=== PATIENT | female | born 2000 ===

== ENCOUNTER → 2022-03-24 11:15 | Outpatient (CLI) | payer OTHER, SELFPAY ==
--- NOTE | 2022-03-24 11:16 | DI.US.S_ITS ---
PROCEDURE: US OB <= 14 WEEKS FETUS INDICATIONS: DATING TECHNIQUE: Real-time scanning was performed of the fetus and maternal pelvic organs, with image documentation. Endovaginal scanning was also performed to better visualize the fetus and maternal ovaries. COMPARISON: None. Findings: Gestational sac at the uterine fundus containing a fetus with a crown-rump length of 2.1 cm, corresponding to gestational age of 8 weeks 5 days. Yolk sac noted. heart rate 169 beats per minute. Size is consistent with dates. IMPRESSION: Single living intrauterine gestation with estimated gestational age 8 weeks 5 days based on ultrasound parameters. We strive to produce accurate, complete, and clear reports of imaging services. To assist us in improving patient care, this report was composed using standard report templates and voice recognition software. Therefore, it may contain abnormal punctuation, insertions and/or omissions. Occasional wrong-word or sound-alike substitutions may occur. Though we review the report and make efforts to correct it, we do recommend that the report be read carefully in proper context to recognize any text inaccuracies. Dictated by: Vinay Jasso M.D. on 03/24/2022 at 18:42 Approved by: Vinay Jasso M.D. on 03/24/2022 at 18:43
== END ==
PROVIDERS: Referring Provider Obstetrics & Gynecology; Visit Provider Obstetrics & Gynecology
DX: Z36.87 Encounter for antenatal screening for uncertain dates (principal); Z3A.08 8 weeks gestation of pregnancy
CPT/HCPCS: 76801; 76817

== ENCOUNTER → 2022-04-20 15:56 | Outpatient (CLI) | payer OTHER, SELFPAY ==
[2022-04-20 17:10] LABS: Add Manual Diff / Slide Review NO; Basophils Absolute Auto 0 /uL (0-100); Basophils Percent Auto 0.2 % (0-2); Eosinophils Absolute Auto 200 /uL (0-450); Eosinophils Percent Auto 2.4 % (2-4); Hematocrit 38.8 % (36-46); Hemoglobin 13.3 g/dL (12.0-16.0); Lymphocytes Absolute Auto 2200 /uL (1100-4500); Lymphocytes Percent Auto 21.2 % (25-40); Mean Corpuscular HGB Conc 34.2 % (30-36); Mean Corpuscular Hemoglobin 31.4 PG (26-34); Mean Corpuscular Volume 91.9 fL (80-100); Monocytes Absolute Auto 600 /uL (0-900); Monocytes Percent Auto 6.1 % (3-14); Neutrophils Absolute Auto 7200 /uL (1500-7000); Neutrophils Percent Auto 70.1 % (50-75); Platelet Count 230 X10^3/uL (150-400); Red Blood Cell Count 4.22 X10^6/uL (4.0-5.2); Red Cell Distribution Width 12.6 % (11.6-14.8); White Blood Cell Count 10.2 X10^3/uL (4.5-11.0)
[2022-04-21 16:17] LABS: Hepatitis B Surface Antigen NEGATIVE s/c (NEGATIVE); Rubella Antibody IgG 10.6 IU/mL (>15)
[2022-04-21 16:34] LABS: HIV 1 & 2 Ab/Ag 4th Gen Combo NEGATIVE (NEGATIVE); Hep C Virus Ab w/Reflex Quant NEGATIVE s/c (NEGATIVE)
[2022-04-22 02:58] LABS: RPR Screen Non Reactive (Non Reactive)
[2022-04-22 08:10] LABS: Varicella IgG Antibody 441 index (Immune >165)
== END ==
PROVIDERS: Referring Provider Obstetrics & Gynecology; Visit Provider Obstetrics & Gynecology
DX: Z34.01 Encounter for supervision of normal first pregnancy, first trimester (principal); Z3A.12 12 weeks gestation of pregnancy
CPT/HCPCS: 36415; 80055; 86787; 86803; 86850; 86900; 86901; 87077; 87086; 87186; 87389

== ENCOUNTER 2022-04-21 23:15 | Emergency (ER) | payer OTHER, SELFPAY ==
[2022-04-21 23:30] VITALS: BP 109/68; PULSE 87; RESP 17; TEMP 37.1; O2SAT 98; BMI 25.9
--- NOTE | 2022-04-21 23:34 | ED_ITS ---
HPI - Headache General Chief Complaint: Headache Stated Complaint: mirgraines Time Seen by Provider: 04/21/22 23:24 Source: patient Mode of arrival: Ambulatory Limitations: no limitations History of Present Illness HPI Narrative: Patient is a 21-year-old female. She is 12 weeks . She is here for evaluation of a migraine headache. She states that at approximately 1100 hours this morning she started to get a left-sided frontal headache. She does have a history of migraines but states that does not come on often. Today's headache feels like 1 of her prior migraines just more intense. No vision changes. No balance issues. No abdominal pain. Nausea or vomiting. No loss of fluid or vaginal bleeding. Did try Tylenol at home without any improvement. Related Data Home Medications Medication Instructions Recorded Confirmed prenat.vits,diego,xul-[id number] 1 tab PO DAILY 03/17/22 03/17/22 Previous Rx's Medication Instructions Recorded ondansetron 4 mg disintegrating 4 mg PO Q6-8H PRN nausea and 03/31/22 tablet vomiting #20 tabs Allergies Allergy/AdvReac Type Severity Reaction Status Date / Time No Known Drug Allergies Allergy Unverified 03/17/22 14:10 Review of Systems Constitutional Constitutional: Reports system reviewed and no additional complaints, except as documented Eyes Eyes: Reports system reviewed and no additional complaints, except as documented ENT Ears, Nose, Mouth, and Throat: Reports system reviewed and no additional complaints, except as documented Gastrointestinal Gastrointestinal: Reports system reviewed and no additional complaints, except as documented Integumentary/Breasts Skin/Breast: Reports system reviewed and no additional complaints, except as documented Neurologic Neurologic: Reports system reviewed and no additional complaints, except as documented Hematologic/Lymphatic On Anticoagulants: No Patient History Medical History Migraine without aura Surgical History (Updated 03/17/22 @ 14:13 by Gi España RN) [place] teeth extracted Family History (Updated 03/17/22 @ 14:14 by Gi España RN) Mother Diabetes mellitus Social History marital status: unmarried,single number of children: 0 household members: friend(s) lives independently: Yes caregiver/support person: No housing: condominium pets and animals: Yes (cat, agrees to wear gloves/mask when dealing w/ litter box) education level: college (some college) occupational status: employed (manufacturing electrician, 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 ) current occupational exposures/hazards: No special torrie needs: No travel history: recent (domestic only ) and over 6 months ago seatbelt use: always water heater temp set < 120 deg: Yes working smoke detector in home: Yes fire extinguisher in home: Yes carbon monox detector in home: Yes firearms in home: Yes firearms unloaded and locked: Yes do you feel safe at home: Yes Smoking Status: Former smoker (quit when she learned she was ) second hand exposure: Yes (roommate vapes, not around pt) alcohol intake: never substance use type: does not use during the past year weight has: remained stable well-balanced diet: rarely or never daily servings fruits/ve-1 caffeine: Yes (~8) Type(s) of exercise: aerobic and weight lifting frequency: 3-4 times per week Smoking Status: Former smoker (quit when she learned she was ) Exam Initial Vital Signs Initial Vital Signs: Vital Signs Temperature 98.7 F 04/21/22 23:30 Pulse Rate 87 04/21/22 23:30 Respiratory Rate 17 04/21/22 23:30 Blood Pressure 109/68 04/21/22 23:30 Pulse Oximetry 98 04/21/22 23:30 Oxygen Delivery Method 04/21/22 23:30 Const General: cooperative, comfortable and No ill appearing HENMT Head: normal to inspection and normocephalic Eyes General: Yes appearance normal, both eyes and all related structures Resp Effort & Inspection: normal respiratory effort Cardio Rate: regular rate Skin General: no rashes or lesions noted Neuro General: patient alert, patient awake and patient oriented x3 Cranial Nerves: CN's II-XI intact bilaterally Cognition: normal cognition Speech: speech normal Sensory Exam: no sensory deficits noted Extrem General: normal to inspection Psych Appearance: grossly normal and well kempt Scores GCS [place] coma scale eye opening: Spontaneous [place] coma scale verbal response: Orientated [place] coma scale motor response: Obey commands Sydnie coma scale total score: 15 Course Orders Ordered: Discontinued Medications Diphenhydramine HCl (Diphenhydramine 50 Mg/Ml Vial) 25 mg IV NOW ONE Stop: 04/21/22 23:26 Last Admin: 04/21/22 23:42 Dose: 25 mg Documented By: ARABELLA Sodium Chloride (Normal Saline 0.9%) 1,000 mls @ 1,000 mls/hr IV BOLUS ONE Stop: 04/22/22 00:24 Last Infusion: 04/22/22 00:54 Dose: 0 mls/hr Documented By: Admin: 04/21/22 23:42 Dose: 1,000 mls/hr Documented By: OW Metoclopramide HCl (Metoclopramide 10 Mg/2 Ml Inj) 10 mg IV NOW ONE Stop: 04/21/22 23:26 Last Admin: 04/21/22 23:42 Dose: 10 mg Documented By: OW Vital Signs Vital signs: Vital Signs - 8 hr 04/21/22 23:30 Temperature 98.7 F Pulse Rate 87 Respiratory Rate 17 Blood Pressure 109/68 Pulse Oximetry 98 Oxygen Delivery Method Room Air MDM - Headache MDM Narrative Medical decision making narrative: After medications patient reports a vast improvement of her headache. She is no focal neurologic deficits. Low suspicion for intracranial hemorrhage. Will hold on any radiologic studies for now given her presentation, status and my low pretest probability of intracranial hemorrhage. Low suspicion for meningitis. There has been no trauma. Will discharge patient home with instructions to follow-up with primary doctor. She was given return precautions. She expressed understanding and agreement. Discharge Plan Departure Patient Disposition: Home Clinical Impression: Migraine Instructions: DI for Migraine Activity Restrictions/Additional Instructions: Recommend that you continue to take all of your medications as directed and keep all of your scheduled medical appointments. Contact your primary provider for a follow-up. Return to the emergency department for any new symptoms. Prescriptions: No Action ondansetron 4 mg tablet,disintegrating 4 mg PO Q6-8H PRN (Reason: nausea and vomiting) Qty: 20 2RF prenat.vits,diego,lbo-orgn-qrazp Tablet 1 tab PO DAILY Referrals: ProviderSenthil [Primary Care Provider] - Stand Alone Forms: Patient Portal/API, Work Release Note
[2022-04-21] MEDS: diphenhydrAMINE 50 MG/ML VIAL 25 MG IV (23:42)
[2022-04-21] MEDS: METOCLOPRAMIDE 10 MG/2 ML INJ IV (23:42)
[2022-04-21] MEDS: SODIUM CHLORIDE 0.9% 1,000 ML 1000 ML IV (23:42)
[2022-04-21 23:48] VITALS: PULSE 101; O2SAT 100
[2022-04-22] VITALS: PULSE 86; O2SAT 99
[2022-04-22 00:30] VITALS: PULSE 87; O2SAT 100
[2022-04-22 01:00] VITALS: PULSE 91; O2SAT 100
[2022-04-22 01:14] VITALS: BP 98/53; PULSE 84; O2SAT 100
== END 2022-04-22 01:19 | disposition home or self-care (01) ==
PROVIDERS: Emergency Provider Emergency Medicine
DX: G43.909 Migraine, unspecified, not intractable, without status migrainosus (principal)
CPT/HCPCS: 36415; 96361; 96374; 96375; 99284; J1200; J2765

== ENCOUNTER 2022-04-23 10:19 | Emergency (ER) | payer OTHER, SELFPAY ==
[2022-04-23 10:25] VITALS: BP 132/63; PULSE 82; RESP 14; TEMP 36.4; O2SAT 99
--- NOTE | 2022-04-23 11:23 | ED_ITS ---
HPI - Headache General Chief Complaint: Headache Stated Complaint: MIGRAINE Time Seen by Provider: 04/23/22 11:21 Source: patient Mode of arrival: Ambulatory Limitations: no limitations History of Present Illness HPI Narrative: This is a 21-year-old female at 12 weeks with history of migraines. Patient presents with complaint of left-sided frontal headache little bit around the orbit. She states intensity is somewhat similar to past migraines. She states past migraines have been in various locations not really specific locations. She states she does have some mild photophobia. She denies fevers or chills. She is had nausea she was having vomiting but has not had any persistent while taking Zofran at home. Patient has had some nasal congestion. She states pressure around the eye but not within the eye itself. No acute vision changes. The eyeball itself does not hurt her. She denies numbness, tingling or weakness. No difficulty with gait. No dizziness. No syncope. No chest pain or shortness of breath. Some mild constipation. No urinary changes. No new swelling in extremities. Patient states in the past she would take Excedrin for migraines but can take this due to . She is on a she is been taking Zofran as needed. She denies prior surgeries. Denies any drug allergies. Denies other medical issues besides migraines. No active smoking, no active alcohol or illicit drug use. Dr. Benitez is her current OB provider. She is accompanied by her baby's father. Related Data Home Medications Medication Instructions Recorded Confirmed prenat.vits,diego,bua-dguo-wencp 1 tab PO DAILY 03/17/22 03/17/22 Previous Rx's Medication Instructions Recorded ondansetron 4 mg disintegrating 4 mg PO Q6-8H PRN nausea and 03/31/22 tablet vomiting #20 tabs fluticasone propionate 50 2 spray intranasal DAILY PRN nasal 04/23/22 mcg/actuation nasal congestion #16 grams spray,suspension (Children's Flonase Allergy Relief) oxycodone 5 mg tablet 5 mg PO Q6H PRN pain #7 tabs 04/23/22 Allergies Allergy/AdvReac Type Severity Reaction Status Date / Time No Known Drug Allergies Allergy Verified 04/23/22 10:33 Review of Systems Review of Systems ROS Unobtainable: All systems reviewed & are unremarkable except as noted in HPI and below Patient History Medical History (Updated 04/23/22 @ 18:07 by Barbara Norman) Migraine without aura Surgical History (Updated 04/23/22 @ 18:07 by Barbara Norman) Anesthesia [place] teeth extracted Family History Mother Diabetes mellitus Social History marital status: unmarried,single number of children: 0 household members: friend(s) lives independently: Yes caregiver/support person: No housing: condominium pets and animals: Yes (cat, agrees to wear gloves/mask when dealing w/ litter box) education level: college (some college) occupational status: employed (electrician apprentice powerhouse, 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 ) current occupational exposures/hazards: No special torrie needs: No travel history: recent (domestic only ) and over 6 months ago seatbelt use: always water heater temp set < 120 deg: Yes working smoke detector in home: Yes fire extinguisher in home: Yes carbon monox detector in home: Yes firearms in home: Yes firearms unloaded and locked: Yes do you feel safe at home: Yes Smoking Status: Former smoker second hand exposure: Yes (roommate vapes, not around pt) alcohol intake: never substance use type: does not use during the past year weight has: remained stable well-balanced diet: rarely or never daily servings fruits/ve-1 caffeine: Yes (~8) Type(s) of exercise: aerobic and weight lifting frequency: 3-4 times per week Smoking Status: Former smoker alcohol intake frequency: 0-2 drinks per day Substance Use Type: does not use Exam Narrative Exam Narrative: GEN: well nourished, well appearing female, alert and oriented x 3, patient appears to be in mild distress. HEENT: Atraumatic, pupils are equal round reactive to light, extraocular movements are intact, nares are clear, TMs are clear with no fluid, there is no conjunctival pallor. Throat is clear without any exudates, erythema, tonsillar enlargement or uvular deviation, no sinus tenderness. Normal range of motion. No meningeal changes. Facial droop. HEART: Regular rate and rhythm without murmur, clicks, rubs. LUNGS:Lungs clear to auscultation, no wheezes, rales, crackles, chest moves symmetrically ABD:bowel sounds normal, soft, non-tender, no guarding, rebound, rigidity, no masses noted, no hepatosplenomegaly :No CVA tenderness MSCL: Non-tender, no muscle atrophy, muscles strength 5/5 upper and lower extremities, full range of motion, normal gait NEURO:CN 2-12 intact, sensation normal, finger nose finger test normal, heel cancino test normal SKIN: No rash, erythema or other skin changes. Initial Vital Signs Initial Vital Signs: Vital Signs Temperature 97.5 F L 04/23/22 10:25 Pulse Rate 82 04/23/22 10:25 Respiratory Rate 14 04/23/22 10:25 Blood Pressure 132/63 04/23/22 10:25 Pulse Oximetry 99 04/23/22 10:25 Oxygen Delivery Method 04/23/22 10:25 Scores GCS Sydnie coma scale eye opening: Spontaneous [place] coma scale verbal response: Orientated [place] coma scale motor response: Obey commands [place] coma scale total score: 15 Course Orders Ordered: Discontinued Medications Acetaminophen (Acetaminophen 325 Mg Tablet) 975 mg PO NOW ONE Stop: 04/23/22 11:42 Last Admin: 04/23/22 12:02 Dose: 975 mg Documented By: AT Dexamethasone (Dexamethasone 10 Mg/Ml Vial) 10 mg IV NOW ONE Stop: 04/23/22 11:42 Last Admin: 04/23/22 12:07 Dose: 10 mg Documented By: AT Sodium Chloride (Normal Saline 0.9%) 1,000 mls @ 1,000 mls/hr IV BOLUS ONE Stop: 04/23/22 12:40 Last Infusion: 04/23/22 13:33 Dose: 0 mls/hr Documented By: Admin: 04/23/22 12:03 Dose: 1,000 mls/hr Documented By: AT Metoclopramide HCl (Metoclopramide 10 Mg/2 Ml Inj) 10 mg IV NOW ONE Stop: 04/23/22 11:42 Last Admin: 04/23/22 12:03 Dose: 10 mg Documented By: AT Vital Signs Vital signs: Vital Signs - 8 hr 04/23/22 12:08 04/23/22 13:39 Pulse Rate 84 88 Respiratory Rate 18 18 Blood Pressure 115/64 117/60 Pulse Oximetry 99 99 Oxygen Delivery Method Room Air Room Air MDM - Headache MDM Narrative Medical decision making narrative: This is a 21-year-old female who represents for migraine type symptoms. Patient has history of migraines she states typically they have not been as long lasting no other atypical features for her. She can not take her normal medication which he typically takes Excedrin. She had Tylenol, fluids and Reglan at her last visit which he states decreased quite a bit but it has since sort of rebounded. She has been taking Tylenol and Zofran as needed which has been helping with nausea. She states she was able to sleep last night her last dose of Tylenol was over 8 hours ago. Patient's history and neurologic exam are overall reassuring. Plan for fluids, Tylenol, Reglan and a dose of dexamethasone as I suspect she has persistent migraine. She has had sinus discomfort but is nontender without fever or significant nasal drainage making a sinusitis less likely. There do not appear to be any changes to the eye on suspicion of this as a source is much lower. On recheck patient states minimal to no improving. We discussed giving alternative pain medications would be narcotic. Patient is reluctant we discussed not completely contraindicated but not preferred for treatment. We do have to avoid NSAIDs. Discussed with patient plan for discharge home she does have some sinus pressure so will give a prescription for Flonase. Discussed short course of narcotic pain medication have available but patient's preference to avoid this she can continue with Tylenol as needed and homeless Zofran. Discussed return strict precautions and signs and symptoms to watch for and they expressed understanding. Plan for prescription short course of narcotic pain medication as needed if needed, Tylenol and follow-up with OBGYN for recheck. Patient also has appreciated some sinus pressure so will add on Flonase intranasally to see if this also improved her symptoms. She does not appear to have bacterial sinusitis but this may be helpful. Discharge Plan Departure Patient Disposition: Home Clinical Impression: Migraine Instructions: DI for Migraine Activity Restrictions/Additional Instructions: Please follow-up with your provider this week for recheck. You can take Tylenol up to a 1000 mg every 6 hours as needed for pain. You can use Flonase 1-2 squirts up each size of your nose 1 or 2 times daily. You may take 1 or 2 tablets of oxycodone every 6 hours as needed for severe pain. I would take the Tylenol 1st and if needed then try the narcotic. This medication can make you sleepy do not drive, perform hazardous activities or make any major decisions while taking it. This medication will make you constipated please take a stool softener once to twice daily until stools are soft and regular. Prescription sent to [facility] in [place] Please return for fevers, rapidly worsening symptoms, sudden vision changes, new numbness, tingling weakness, facial droop, new dizziness, passing out, new chest pain, shortness of breath or persistent vomiting or other new or concerning changes Prescriptions: New oxycodone 5 mg tablet 5 mg PO Q6H PRN (Reason: pain) Qty: 7 0RF fluticasone propionate [Children's Flonase Allergy Rlf] 50 mcg/actuation spray,suspension 2 spray intranasal DAILY PRN (Reason: nasal congestion) Qty: 16 0RF Rx Instructions: administer into each nostril No Action ondansetron 4 mg tablet,disintegrating 4 mg PO Q6-8H PRN (Reason: nausea and vomiting) Qty: 20 2RF prenat.vits,diego,[id number]-[id number] Tablet 1 tab PO DAILY Referrals: ProviderSenthil [Primary Care Provider] - Stand Alone Forms: Patient Portal/API
[2022-04-23] MEDS: ACETAMINOPHEN 325 MG TABLET 975 MG PO (12:02)
[2022-04-23] MEDS: METOCLOPRAMIDE 10 MG/2 ML INJ IV (12:03)
[2022-04-23] MEDS: SODIUM CHLORIDE 0.9% 1,000 ML 1000 ML IV (12:03)
[2022-04-23] MEDS: DEXAMETHASONE 10 MG/ML VIAL IV (12:07)
[2022-04-23 12:08] VITALS: BP 115/64; PULSE 84; RESP 18; O2SAT 99
--- NOTE | 2022-04-23 13:03 | PC.NURSE ---
Pt denies improvement in pain.
[2022-04-23 13:39] VITALS: BP 117/60; PULSE 88; RESP 18; O2SAT 99
== END 2022-04-23 13:41 | disposition home or self-care (01) ==
PROVIDERS: Emergency Provider Emergency Medicine
DX: G43.909 Migraine, unspecified, not intractable, without status migrainosus (principal)
CPT/HCPCS: 96361; 96374; 96375; 99284; J1100; J2765

== ENCOUNTER → 2022-05-20 15:10 | Outpatient (CLI) | payer OTHER, SELFPAY ==
[2022-05-24 19:36] LABS: AFP Value 55.9 ng/mL (.); Gest Age on Col Date 16.6 weeks (.); Insulin Dep Diabetes No (.); OSBR Risk 1IN 4034 (.); Results Report (.); Test Results *Screen Negative* (.)
== END ==
PROVIDERS: Referring Provider Obstetrics & Gynecology; Visit Provider Obstetrics & Gynecology
DX: Z34.02 Encounter for supervision of normal first pregnancy, second trimester (principal); Z36.0 Encounter for antenatal screening for chromosomal anomalies; Z3A.16 16 weeks gestation of pregnancy
CPT/HCPCS: 36415; 82105

== ENCOUNTER → 2022-06-16 14:15 | Outpatient (CLI) | payer OTHER, SELFPAY ==
--- NOTE | 2022-06-16 14:16 | DI.US.S_ITS ---
PROCEDURE: US OB >= 14 WEEKS FETUS INDICATIONS: 20 week FAS OUTSIDE/PRIOR DATING DATA: Last menstrual period (LMP): 01/24/2022. LMP-based estimated date of delivery (EMILIA): 10/31/2022. First dating scan (date and location): 03/24/2022. Estimated date of delivery (EMILIA) from first dating scan: 10/29/2022. The calculations are made using the working EMILIA of 10/31/2022. TECHNIQUE: Real-time scanning was performed of the fetus, with image documentation and biometric measurements. Endovaginal scanning: Not performed COMPARISON: None. FINDINGS: General: A single living intrauterine gestation is present. Presentation: Breech. Placenta: Placental position is anterior , without previa. Amniotic fluid index: 14.7 cm, normal range is 5-24 cm. Single deepest vertical pocket is 4.4 cm. heart rate: 144 beats per minute. Maternal cervical canal: 4.2 cm long. Normal lower limit is 2.5 cm. biometrics: Biparietal diameter: 5.0 cm, 21 weeks 1 day Head circumference: 18.8 cm, 21 weeks 1 day Abdominal circumference: 15.9 cm, 21 weeks 0 days Femur length: 3.4 cm, 20 weeks 4 days Clinically estimated gestational age: 20 weeks 3 days Composite gestational age from present scan: 21 weeks 0 days Estimated weight and percentile: 382 g, 69th percentile Anatomic survey: Neuro: Ventricles are non-dilated at less than 10 mm. Cisterna magna is normal at 3-11 mm. Cerebellum is normal in size and morphology. Nuchal skin fold: Normal at less than 6 mm between 14-21 weeks gestational age. Face: Nose and lips, facial profile are normal. Spine: No evidence for spina bifida. Heart: 4-chambered heart is present, with normal ventricular outflow tracts. Diaphragm: Diaphragm is intact. Stomach: Left-sided stomach is present. Kidneys: No hydronephrosis. Normal is less than 5 mm in 2nd trimester, less than 7 mm in 3rd trimester. Cord: 3-vessel cord has orthotopic insertion. Bladder: Normal in size. Extremities: All 4 extremities identified. IMPRESSION: 1. Living 2nd trimester intrauterine with no sonographic evidence of complications. 2. Normal anatomy study. We strive to produce accurate, complete, and clear reports of imaging services. To assist us in improving patient care, this report was composed using standard report templates and voice recognition software. Therefore, it may contain abnormal punctuation, insertions and/or omissions. Occasional wrong-word or sound-alike substitutions may occur. Though we review the report and make efforts to correct it, we do recommend that the report be read carefully in proper context to recognize any text inaccuracies. Measurement variability for biometric dating: +/- 7 days from 14 weeks to 15 weeks 6 days gestation, +/- 10 days from 16 weeks to 21 weeks 6 days gestation, +/- 2 weeks from 22 weeks to 27 weeks 6 days gestation, +/- 3 weeks for 28 weeks gestation or later. weight reference: 4500 g or EFW >90/95% is considered macrosomia or large for gestational age. EFW <10% is small for gestational age. EFW 5% or less is considered intra-uterine growth restriction. Dictated by: Henrry Teixeira M.D. on 06/16/2022 at 17:49 Approved by: Henrry Teixeira M.D. on 06/16/2022 at 17:52
== END ==
PROVIDERS: Referring Provider Obstetrics & Gynecology; Visit Provider Obstetrics & Gynecology
DX: Z34.02 Encounter for supervision of normal first pregnancy, second trimester (principal); Z3A.21 21 weeks gestation of pregnancy
CPT/HCPCS: 76811

== ENCOUNTER → 2022-07-15 13:55 | Outpatient (CLI) | payer OTHER, SELFPAY ==
[2022-07-15 15:21] LABS: Hematocrit 37.8 % (36-46); Hemoglobin 12.7 g/dL (12.0-16.0)
[2022-07-15 16:43] LABS: GTT (PREG) 1 Hour PP 50gm Dose 142 mg/dL (76-139)
== END ==
PROVIDERS: Referring Provider Obstetrics & Gynecology; Visit Provider Obstetrics & Gynecology
DX: Z34.02 Encounter for supervision of normal first pregnancy, second trimester (principal); Z3A.26 26 weeks gestation of pregnancy
CPT/HCPCS: 36415; 82950; 85014; 85018

== ENCOUNTER → 2022-07-27 07:45 | Outpatient (CLI) | payer OTHER, SELFPAY ==
[2022-07-27 09:08] LABS: Glucose Fasting Gestational 82 mg/dL (76-95)
[2022-07-27 10:57] LABS: Glucose 2 Hour Gest 142 mg/dL (76-155)
[2022-07-27 11:01] LABS: Glucose Tol Interp,Gestational INTERPRETATION
[2022-07-27 11:06] LABS: Glucose 1 Hour Gest 163 mg/dL (76-180)
[2022-07-27 11:54] LABS: Glucose 3 Hour Gest 140 mg/dL (76-140)
== END ==
PROVIDERS: Referring Provider Obstetrics & Gynecology; Visit Provider Obstetrics & Gynecology
DX: R73.09 Other abnormal glucose (principal)
CPT/HCPCS: 36415; 82951; 82952

== ENCOUNTER → 2022-08-29 08:00 | Outpatient (CLI) | payer OTHER, SELFPAY ==
[2022-08-29 09:19] LABS: Glucose Fasting Gestational 91 mg/dL (76-95)
[2022-08-29 10:09] LABS: Glucose 1 Hour Gest 177 mg/dL (76-180)
[2022-08-29 12:18] LABS: Glucose 2 Hour Gest 182 mg/dL (76-155)
[2022-08-29 13:15] LABS: Glucose Tol Interp,Gestational INTERPRETATION
[2022-08-29 13:23] LABS: Glucose 3 Hour Gest 150 mg/dL (76-140)
== END ==
PROVIDERS: Referring Provider Obstetrics & Gynecology; Visit Provider Obstetrics & Gynecology
DX: O26.899 Other specified pregnancy related conditions, unspecified trimester (principal); R81 Glycosuria
CPT/HCPCS: 82951; 82952

== ENCOUNTER → 2022-09-23 12:42 | Outpatient (CLI) | payer OTHER, SELFPAY ==
--- NOTE | 2022-09-23 12:54 | DIAB.GDA ---
Initial Gestational Diabetes Assessment Name: Liz Min Date: 1pm Time: 09/23/22 Dx: Gestational Diabetes Provider: Emmanuel EMILIA: October 31, 2022 Weeks: [address] visit with partner, Anthony. Pt feels confident in checking BGs, curious to learn more about lowering BGs if high. Pt and partner very capable of good follow through with care. They meal prep daily and lead healthy lives with regular physical activity. Diet Recall: Breakfast 8am: bagel with cream cheese and avocado breakfast nowL eggs with cooked ham, half bagel and avocado, water Likes [employer] drinks like Caramel Macchiato and Refreshers but noticed when drinking BG elevated too high, so mostly avoiding. L: chicken noodle soup, ground beef and rice with asparagus D: similar to lunch Partner meal preps for family Physical Activity: Walking around a lot at work and doing a lot of cleaning at home. Was going to gym once or twice per week to list weights but hasn't since getting back from vacation 3w ago. Self-Monitoring Blood Glucose: Started testing BGs 09/08/22: FBGs: 89-92, none above 95 1h PP: mostly in 120s, had a few elevations while in [place] during baby shower. Date Pre Post Pre Post Pre Post HS Diabetes Medications: Currently taking prednisone for [place] Palsy, may cause elevated BGs, only has 5d left of Rx. Pertinent Labs: Elevated 1h GTT, normal 3h GTT which was repeated at 30w with H at 2 and 3h (see EMR) Nutrition Rx: Carbohydrates: Meal: 45-g lunch and dinner; 30g breakfast Snack: 15-30g Nutrition Diagnosis: Altered nutrition related lab value r/t GDM dx aeb recent OGTT Intervention: This participant was very receptive. Provided appropriate educational handouts. Discussed the following topics: GDM pathophysiology and impact of hyperglycemia on mom and baby Risk for T2DM for mom and baby in the future Ways to reduce risk T2DM Plate Method, meal timing, carb counting, pairing macronutrients and spreading out CHO for better BG management Blood glucose goals (FBG: <95 and 1 hour <140 mg/dL); importance of checking 4x per day (FBG and pc) Impact of macronutrients on blood glucose Recommended servings for carbohydrates at meals and snacks Brainstormed appropriate meal plan based on her food preferences Role of physical activity and following provider guidelines for safety Goals: Pt will continue to check FBG and 1h PP daily. Pt will pair protein and fiber with carbohydrates for optimal glycemic control. Pt will walk 10min after meals as able. Follow-up: PRN as pts BGs well controlled and at [address] Clinical Dietitian T: [phone] F: [phone] Thank you for this referral
== END ==
PROVIDERS: Absent Provider Obstetrics & Gynecology; Family Provider Obstetrics & Gynecology; Referring Provider Obstetrics & Gynecology; Visit Provider Obstetrics & Gynecology
DX: O24.419 Gestational diabetes mellitus in pregnancy, unspecified control (principal); Z3A.34 34 weeks gestation of pregnancy; Z71.3 Dietary counseling and surveillance
CPT/HCPCS: 97802

== ENCOUNTER → 2022-10-07 14:52 | Outpatient (CLI) | payer OTHER, SELFPAY ==
[2022-10-07 19:13] LABS: Urine N gonorrhoeae NOT DETECTED
[2022-10-07 19:22] LABS: Urine Chlamydia NOT DETECTED
[2022-10-08 16:19] LABS: Strep Grp B PCR NEG for Grp B Strep
== END ==
PROVIDERS: Family Provider Obstetrics & Gynecology; Visit Provider Obstetrics & Gynecology
DX: R35.0 Frequency of micturition (principal); R82.998 Other abnormal findings in urine; Z34.03 Encounter for supervision of normal first pregnancy, third trimester; Z3A.36 36 weeks gestation of pregnancy; Z3A.34 34 weeks gestation of pregnancy
CPT/HCPCS: 87086; 87491; 87591; 87653

== ENCOUNTER 2022-10-09 20:10 | Inpatient (IN) | payer OTHER, SELFPAY ==
--- NOTE | 2022-10-09 21:09 | PM.OBHP.1 ---
OB HPI Date/Time Date of admission: 10/09/22 Date Patient Seen: 10/10/22 Time Patient Seen: 07:33 History of Present Condition Chief complaint: Labor : 1 Estimated Date of Delivery: 10/31/22 Estimated Gestational Age (weeks): 36 Narrative: Liz Min is a 22 year old female admitted with SROM History of Present care: good care, initiated at week # (12), number of visits (8) and pounds weight gain (46) Dating criteria: LMP confirmed by 1st trimester US Ultrasounds: normal mid trimester US Obstetrical complications: gestational diabetes (diet controlled) Medical complications: none Preadmission Labs Blood type: A (+) positive -: Antibody screen: negative, GBS status: negative, HBsAG: negative, HIV: negative and RPR/VDLR: negative -: Chlamydia screen: not detected and Gonorrhea screen: not detected -: Rubella: not immune and Varicella: immune HCAB: negative Cell-free DNA: normal 1 hr GTT: 142 3 hr GTT: 1 hr (177), 2 hr (182) and 3 hr (150) Fasting blood glucose: 91 Evaluation Evaluation Baseline heart rate: 145 Variability: Moderate (11-25) monitor accelerations: Present Monitor Decelerations: Absent Contraction Frequency (minutes): 3 Uterine Contraction Intensity: Mild Category of Tracing: Reactive Status: Category l Dilation (cm): 1 Effacement (%): 50 Dilation: 1-2 cm Effacement: 40-50% station: -2 Position of cervix: anterior Consistency: soft George score: 7 Non-invasive Membranes Rupture Test: positive PFSH Medical History (Updated 10/07/22 @ 15:12 by Puneet Benitez MD) Migraine without aura Surgical History (Updated 04/23/22 @ 18:07 by Barbara Norman) Anesthesia [place] teeth extracted Family History Mother Diabetes mellitus Social History marital status: unmarried,single number of children: 0 household members: friend(s) lives independently: Yes caregiver/support person: No housing: condominium pets and animals: Yes (cat, agrees to wear gloves/mask when dealing w/ litter box) education level: college (some college) occupational status: employed (industrial maintenance electrician, 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 ) current occupational exposures/hazards: No special torrie needs: No travel history: recent (domestic only ) and over 6 months ago seatbelt use: always water heater temp set < 120 deg: Yes working smoke detector in home: Yes fire extinguisher in home: Yes carbon monox detector in home: Yes firearms in home: Yes firearms unloaded and locked: Yes do you feel safe at home: Yes Smoking Status: Former smoker second hand exposure: Yes (roommate vapes, not around pt) alcohol intake: never substance use type: does not use during the past year weight has: remained stable well-balanced diet: rarely or never daily servings fruits/ve-1 caffeine: Yes (~8) Type(s) of exercise: aerobic and weight lifting frequency: 3-4 times per week Meds Home Medications and Allergies Home Medications Medication Instructions Recorded Confirmed Type prenat.vits,diego,bqt-xgno-xbpnj 1 tab PO DAILY 03/17/22 10/09/22 History valacyclovir 500 mg tablet 500 mg PO BID #10 tabs 09/05/22 10/09/22 Rx (Valtrex) blood-glucose meter (Blood Glucose #1 ea 09/08/22 10/09/22 Rx Monitoring kit) lancets (Comfort Lancets) #100 ea 09/08/22 10/09/22 Rx methylprednisolone 4 mg tablets in 4 mg PO DAILY #21 ea 09/08/22 10/09/22 Rx a dose pack blood sugar diagnostic (Blood #100 ea 10/07/22 10/09/22 Rx Glucose Test strips) Allergies Allergy/AdvReac Type Severity Reaction Status Date / Time clarithromycin [From Biaxin] AdvReac Mild Rash Verified 10/09/22 22:11 Review of Systems Review of Systems Narrative: Patient has spontaneous rupture membranes clear fluid. No significant contractions. Good movement. No headaches, scotomata, epigastric pain. No vaginal bleeding. OB Exam Vital signs Blood Pressure: 126/75 Pulse Rate: 84 Temperature: 36.4 F Narrative Exam Narrative: HEENT exam within normal limits. Lungs are clear to auscultation percussion. Heart is regular rate and rhythm no S3-S4 murmurs. Abdomen is gravid. Fetus is vertex. Extremities without edema and nontender. Objective Labs 10/09/22 21:35 Assessment and Plan Assessment and Plan Assessment and Plan narrative: G1 36w6d gestation with SROM clear at 1700. Not in active labor, Bishops score 7. Admit, cervadil, Pitocin if not in active labor, anticipate vaginal delivery
[2022-10-09 21:17] VITALS: BP 126/75; PULSE 84; TEMP 2.4; TEMP 36.4
[2022-10-09 22:00] LABS: Add Manual Diff / Slide Review NO; Basophils Absolute Auto 0 /uL (0-100); Basophils Percent Auto 0.5 % (0-2); Eosinophils Absolute Auto 100 /uL (0-450); Eosinophils Percent Auto 1.5 % (2-4); Hematocrit 37.1 % (36-46); Hemoglobin 12.7 g/dL (12.0-16.0); Lymphocytes Absolute Auto 1900 /uL (1100-4500); Lymphocytes Percent Auto 21.6 % (25-40); Mean Corpuscular HGB Conc 34.4 % (30-36); Mean Corpuscular Hemoglobin 31.9 PG (26-34); Mean Corpuscular Volume 92.8 fL (80-100); Monocytes Absolute Auto 600 /uL (0-900); Monocytes Percent Auto 7.4 % (3-14); Neutrophils Absolute Auto 6000 /uL (1500-7000); Platelet Count 228 X10^3/uL (150-400); Red Blood Cell Count 3.99 X10^6/uL (4.0-5.2); Red Cell Distribution Width 14.2 % (11.6-14.8); White Blood Cell Count 8.7 X10^3/uL (4.5-11.0)
[2022-10-09 22:07] VITALS: BP 126/75
[2022-10-10] MEDS: OXYTOCIN PREMIX 30 UNIT/500 ML PLAST..BAG IV (08:51)
--- NOTE | 2022-10-10 13:07 | PM.OBPNLAB ---
Date/Time Date Patient Seen: 10/10/22 Time Patient Seen: 13:07 Pain Control Pain control: tolerating well Pelvic Exam Dilation (cm): 2 Effacement (%): 80 station: -1 Amniotic membrane status: Ruptured Contractions Contractions on admission: regular Monitor mode: External Pitocin rate (mU/min): 10 Contraction frequency (min): 3 Contraction duration (min): 1 Contraction pattern: Regular Contraction intensity: Moderate Status status: Category l Heart Rate Baseline: 150 Monitor Accelerations: Present Monitor Decelerations: Absent Monitor Variability: Moderate Assessment and Plan Assessment: induction ongoing Plan: continuous present management (Pitocin)
--- NOTE | 2022-10-10 15:27 | PM.OBPNLAB ---
Date/Time Date Patient Seen: 10/10/22 Time Patient Seen: 15:27 Pain Control Pain control: epidural (Requested) Pelvic Exam Effacement (%): 80 station: -1 Amniotic membrane status: Ruptured Contractions Monitor mode: External Pitocin rate (mU/min): 0 Contraction frequency (min): 2 Contraction pattern: Regular Contraction intensity: Moderate Status status: Category l Heart Rate Baseline: 150 Monitor Accelerations: Episodic Monitor Decelerations: Absent Monitor Variability: Moderate Assessment and Plan Comments: Patient with hyperstimulation on Pitocin which was turned off. Patient requesting epidural. Patient started on Ancef for prolonged rupture membranes.
[2022-10-10] MEDS: CEFAZOLIN 2 GM/100 ML PREMIX 100 ML IV (15:38)
--- NOTE | 2022-10-10 16:21 | P.PCN_ITS ---
Regional Block Pre-procedure Procedure: Continuous Lumbar Epidural for L&D Attending OB provider: Leigh Haney PMH/ROS narrative: 36+6 SROM, GDM diet controlled. No significant PMH. ASA Class: II Labs: Hct 37.1 % (36-46) 10/09/22 21:35 Plt Count 228 X10^3/uL (150-400) 10/09/22 21:35 Medications: Current Medications Generic Name Dose Route Start Last Admin Trade Name Freq PRN Reason Stop Dose Admin Carboprost Tromethamine 250 mcg 10/09/22 21:01 Carboprost 250 Mcg/Ml Ampul IM Q90M PRN Bleeding Diphenhydramine HCl 25 mg 10/10/22 15:44 Diphenhydramine 50 Mg/Ml Vial IV Q10M PRN Pruritis Fentanyl 50 mcg 10/09/22 21:01 Fentanyl 100 Mcg/2 Ml Inj IV Q1H PRN Pain, Moderate (4-6) Oxytocin/Lactated Ringer's 30 unit in 500 mls @ 200 mls/hr 10/09/22 21:01 Oxytocin Premix IV CONT PRN Bleeding Protocol Tranexamic Acid 1,000 mg/ 100 mls @ 200 mls/hr 10/09/22 21:01 Sodium Chloride IV NOW PRN Bleeding Lactated Ringer's 1,000 mls @ 100 mls/hr 10/09/22 21:15 Lactated Ringers IV CONT JESSE Oxytocin/Lactated Ringer's 30 unit in 500 mls @ 3 mls/hr 10/10/22 08:01 10/10/22 08:51 Oxytocin Premix IV 3 milliunit/min TITRATE JESSE 3 mls/hr Administration Protocol 3 MILLIUNIT/MIN FENT 2MCG/ML BUPIV 0.1% EPI 200 mcg in 100 mls @ 6 mls/hr 10/10/22 15:45 Fentanyl/Bupiv/Ns 2mcg/Ml - 0.1% EPIDURAL CONT JESSE Lidocaine HCl 20 ml 10/09/22 21:01 Lidocaine 1% 20 Ml INJ INTRA-OP PRN Post Delivery Methylergonovine Maleate 0.2 mg 10/09/22 21:01 Methylergonovine 0.2 Mg Tablet PO Q6HR PRN Heavy Bleeding Methylergonovine Maleate 0.2 mg 10/09/22 21:01 Methylergonovine 0.2 Mg/Ml Vial IM NOW PRN Bleeding Misoprostol 800 mcg 10/09/22 21:01 Misoprostol 200 Mcg Tablet OR NOW PRN Bleeding Misoprostol 400 mcg 10/09/22 21:01 Misoprostol 200 Mcg Tablet SL NOW PRN Bleeding Nalbuphine HCl 2.5 mg 10/10/22 15:44 Nalbuphine 20 Mg/Ml Ampul IV Q10M PRN Pruritis Naloxone HCl 0.2 mg 10/09/22 21:01 Naloxone 0.4 Mg/Ml Vial IV Q2MIN PRN Opiate Reversal Oxytocin 10 unit 10/09/22 21:01 Oxytocin 10 Unit/Ml Vial IM NOW PRN Bleeding Allergies: Allergies Allergy/AdvReac Type Severity Reaction Status Date / Time clarithromycin [From Biaxin] AdvReac Mild Rash Verified 10/09/22 22:11 Procedure Insertion date: 10/10/22 Insertion time: 16:03 Prep/Local: betadine x3 and 1% lidocaine Interspace: L3-4 Patient position: sitting Needle: 18 gauge Mobile Armor (CSE: 27g Pencan through Hustead, clear CSF, 2.5mg MPF bupiv) Loss of resistance with: saline TIM at (cm): 5 Catheter placed at SKIN (cm): 11 Catheter in SPACE (cm): 6 Insertion: No CSF, No Blood, No Paresthesia with insertion, No Paresthesia with injection and No Test dose reaction Initial Medications TEST DOSE time: 16:04 TEST DOSE: 1.5% lidocaine with epinephrine 1:200k (mL): 3 BOLUS DOSE time: 16:14 BOLUS DOSE (mL): 4 BOLUS DOSE med: other (infusate) Infusion INFUSION: 0.125% bupivacaine (0.1%) and with fentanyl 2 mcg/mL Initial rate (mL/hr): 6 Subsequent interventions: To OR for CS Post-procedure Anesthesia time START: 15:48 Anesthesia time END: 16:33 Post-procedure Anesthesia Assessment: Yes CV function: HR/BP stable, Yes Resp function: RR/sat/airway adequate, Yes Post-op hydration adequate, Yes Pain control adequate, Yes Nausea & vomiting absent, Yes Temperature > 36 C, Yes Mental status appropriate and No Anesthesia complications
[2022-10-10] MEDS: LACTATED RINGERS 1,000 ML 100 ML IV (19:33)
[2022-10-10] MEDS: FENT 2MCG/ML BUPIV 0.1% EPI 200 MCG/100 ML PLAST..BAG 6 MCG EPIDURAL (22:55)
[2022-10-11] MEDS: LACTATED RINGERS 1,000 ML 100 ML IV ×3 (02:17→17:25)
--- NOTE | 2022-10-11 07:41 | PM.OBPNLAB ---
Date/Time Date Patient Seen: 10/11/22 Time Patient Seen: 07:41 Pain Control Pain control: epidural Pelvic Exam Dilation (cm): 4 Effacement (%): 90 station: -1 Amniotic membrane status: Ruptured Contractions Contractions on admission: irregular Monitor mode: External Pitocin rate (mU/min): 20 Contraction frequency (min): 3 Contraction duration (min): 1 Contraction pattern: Regular Contraction intensity: Strong/Firm Status status: Category l Heart Rate Baseline: 140 Monitor Accelerations: Present Monitor Decelerations: Absent Monitor Variability: Moderate Assessment and Plan Assessment: induction ongoing Comments: Cefazolin 2 g every 8 hours Discussed with patient if no significant change today will most likely and with section
[2022-10-11] MEDS: CEFAZOLIN 2 GM/100 ML PREMIX 100 ML IV ×2 (07:59→16:40)
[2022-10-11] MEDS: FENT 2MCG/ML BUPIV 0.1% EPI 200 MCG/100 ML PLAST..BAG 6 MCG EPIDURAL (09:58)
--- NOTE | 2022-10-11 11:10 | PM.OBPNLAB ---
Date/Time Date Patient Seen: 10/11/22 Time Patient Seen: 11:10 Pain Control Pain control: tolerating well and epidural Pelvic Exam Dilation (cm): 5 Effacement (%): 95 station: -1 Amniotic membrane status: Bulging Comments: Forewaters present; ruptured w/ amnihook, clear fluid 1102. Position indeterminate by SVE. No caput or moulding. Bony vertex impacted against pelvic sidewall laterally but anjelica room posteriorly. Contractions Monitor mode: Internal (IUPC placed 1105) Pitocin rate (mU/min): 20 Contraction frequency (min): 2 Contraction duration (min): 1 Contraction pattern: Regular Contraction phase: Resting Contraction intensity: Moderate Intrauterine tone measurement: 20 (Resting tone 20 mm, max = 50 mm; 5 ctx/10 minutes = 150 MVU) Status status: Category l Heart Rate Baseline: 145 Monitor Accelerations: Present Monitor Decelerations: Absent Monitor Variability: Moderate Assessment and Plan Assessment: induction ongoing Plan: continuous present management Comments: Will reassess progress in 2 hrs. and expect contraction intensity to increase with forewaters now ruptured.
--- NOTE | 2022-10-11 13:43 | PM.OBPNLAB ---
Date/Time Date Patient Seen: 10/11/22 Time Patient Seen: 13:10 Pain Control Pain control: tolerating well and epidural Pelvic Exam Dilation (cm): 5 Effacement (%): 95 station: -1 Amniotic membrane status: Ruptured Comments: is MEETA by bedside ultrasound. Early caput formation noted. Contractions Monitor mode: Internal (IUPC placed 1105) Pitocin rate (mU/min): 20 Contraction frequency (min): 2 Contraction duration (min): 1 Contraction pattern: Regular Contraction phase: Resting Contraction intensity: Moderate Intrauterine tone measurement: 20 (Resting tone 20 mm, max = 50 mm; 5 ctx/10 minutes = 150 MVU) Status status: Category l Heart Rate Baseline: 150 Monitor Accelerations: Present Monitor Decelerations: Absent Monitor Variability: Moderate Assessment and Plan Assessment: induction ongoing Plan: continuous present management Comments: The lack of progress over the last couple of hours is disappointing but with the infant ROP, criteria for secondary arrest not met. Will reassess in 2 more hours and consider recommendation for primary section if no further change in descent and/or dilatation occurs. Patient is also starting to develop low-grade temp despite IV Ancef every 8 hours.
--- NOTE | 2022-10-11 15:49 | PM.OBPNLAB ---
Date/Time Date Patient Seen: 10/11/22 Time Patient Seen: 15:49 Pain Control Pain control: tolerating well and epidural Pelvic Exam Effacement (%): 95 station: -1 Amniotic membrane status: Ruptured Contractions Monitor mode: Internal (IUPC placed 1105) Contraction frequency (min): 2 Contraction pattern: Regular Contraction phase: Resting Contraction intensity: Moderate Intrauterine tone measurement: 20 (Resting tone 20 mm, max = 50 mm; 5 ctx/10 minutes = 150 MVU) Status status: Category l Assessment and Plan Assessment: induction ongoing Plan: Comments: Due to the patient's lack of progress despite adequate contraction activity documented by IUPC, options were discussed for further evaluation/delivery. Infant is in the right occiput posterior position by bedside ultrasound and the bony vertex is impacted on the sidewalls of the upper mid pelvis. Significant caput and molding is now evident and after extensive discussion with the patient and her , the decision has been made to move to primary section for delivery due to failure to progress in labor presumably secondary to cephalopelvic disproportion and/or malposition in persistent occiput posterior position. Patient was counseled regarding alternatives, risks, benefits, and potential complications associated with the section and with full understanding of the above, a written consent was executed, signed, and witnessed.
--- NOTE | 2022-10-11 15:49 | PM.PREOP ---
Pre-operative Note COVID-19 COVID-19 status: Not tested Criteria for continued procedure: Non-surgical alternatives not available or appropriate per current SOC Interval Note History & Physical reviewed/Exam performed by Physician: Yes Changes to H&P: No
[2022-10-11] MEDS: CITRIC ACID/SODIUM CITRATE 15 ML SOLUTION 30 ML PO (16:29)
--- NOTE | 2022-10-11 16:55 | SUR.OPER ---
Supine on padded OR bed, head on pillow, arms secured on padded arm boards at <90 degrees abduction, legs uncrossed, safety belt at thigh, tape over blanket over lower legs.
[2022-10-11 18:05] VITALS: BP 133/88; PULSE 97; RESP 16; TEMP 36.9; O2SAT 100
--- NOTE | 2022-10-11 18:08 | P.OP_ITS ---
Operative Date/Time/Diagnoses Date of procedure: 10/11/22 Time of procedure: 16:50 Pre-op diagnosis: Intrauterine gestation, bucio, 37+1 weeks EGA Failure to progress in labor Persistent occiput posterior position Prolonged rupture of membranes Post-op diagnosis: same Procedure & Clinicians Procedure: Primary section, low transverse cervical Same procedure as scheduled: Yes Indications: Liz is a 22 yo G1 admitted 10/09/2022 with SROM. She was initiated on pitocin 10/10/2022 and progressed very slowly to 90%/4-5/-1-2 by the morning of 10/11/2022. IUPC placed and pitocin continued throughout the day on 10/11/2022 but no significant change was noted over the ensuing 12 hours with the in persistent ROP position. Absent any significant progress for >6 hours w/ adequate contractions, the patient was counselled re: alternatives for management/delivery and decided to proceed to primary section. Surgeon: Puneet Benitez Bow Rehairer: Hanna Johnson Reason for Bow Rehairer: Bow Rehairer required for the safe, effective, and timely completion of this surgery. Anesthesia Type: Spinal and Epidural Operative Notes Findings: Viable male BW [], Apgars []/[], delivered from the [] presentation. Normal gravid anatomy. Closure Type: primary Specimen(s): cord blood Intraoperative meds administered: Hemabate, Ketorolac, Methergine and Pitocin Applied: Catheter Estimated Blood Loss (mL): 1,200 Blood products transfused: none Procedure in detail: With her informed written consent, the patient was taken to the operating room and placed in the supine position for a primary section procedure, for the indication(s) above. The abdomen was prepped and draped in the usual manner for section and a pre-surgical timeout was taken per [facility] OR protocol. Once effective anesthesia was confirmed, a 13 cm transverse Pfannenstiel incision was made in the skin and taken down through the subcutane ous tissues to the deep fascia. The deep fascia was incised transversely, the rectus abdominal eyes bluntly and sharply, and the peritoneal cavity entered without difficulty. The lower uterine segment was visualized and the position/presentation palpated. A transverse incision at or above the vesicouterine reflection was made with Metzenbaum scissors and transverse hysterotomy performed near the midline. Amniotomy revealed clear fluid. The incision was extended bilaterally with digital traction and the infant was delivered without difficulty from the ROP position. The was vigorous and cord clamping delayed for 60 seconds. The placenta was delivered intact using gentle cord traction and fundal massage.The uterine cavity was then cleared of any clot/debris first with a sloppy wet lap tape followed by a dry lap tape. Ring forceps were then applied to the angles and the midline of the incised [place]. A primary closure of the uterus was then accomplished with #1 CCGS in a running interlocking stitch followed by a 2nd layer of #1 CCGS in a running interlocking imbricating stitch. Two additional sutures were required to achieve complete hemostasis. An ascending uterine artery suture was required on the left side. Once pelvic hemostasis was assured, the bladder flap and anterior peritoneum were closed with a running 2-0 Vicryl suture and the fascia closed with #1 Vicryl in a running stitch initiated at both angles and tying separately near the midline. The subcutaneous tissues were reapproximated with 2-0 plain catgut suture using inverted interrupted stitches. The skin edges were then brought together with 4-0 Monocryl in a subcuticular closure and the incision was reinforced with 1 Steri-Strips. An appropriate compression dressing was applied and the patient transferred to PACU for recovery and subsequent transfer to the Center for recuperation. Complications: none [place] Baby 1: Gender: Male Presentation: vertex Position: Right Occiput Posterior Placental Delivery Description: Spontaneous and Expressed Cord Vessel Description: 3 Vessels and Nuchal Cord (Loose, x 1) score (1 min): 7 score (5 min): 9 weight: 7 lb 0.665 oz Post-operative Condition: stable Disposition: PACU Aftercare: routine postop
[2022-10-11 18:11] VITALS: BP 133/87; PULSE 95; RESP 14; O2SAT 100
[2022-10-11 18:16] VITALS: BP 123/87; PULSE 107; RESP 16; O2SAT 100
[2022-10-11] MEDS: fentaNYL 100 MCG/2 ML INJ 25 MCG IV (18:18)
[2022-10-11] MEDS: fentaNYL 100 MCG/2 ML INJ 50 MCG IV (18:23)
[2022-10-11 18:26] VITALS: BP 139/103; PULSE 108; RESP 15; O2SAT 100
[2022-10-11 18:30] VITALS: BP 132/94; PULSE 112; RESP 12; O2SAT 99
[2022-10-11] MEDS: ACETAMINOPHEN 325 MG TABLET 650 MG PO (19:55)
[2022-10-11] MEDS: OXYCODONE IR 10 MG TABLET PO (19:56)
[2022-10-11] MEDS: KETOROLAC 30 MG/ML VIAL IV (20:23)
[2022-10-12] MEDS: KETOROLAC 30 MG/ML VIAL IV ×2 (02:19→08:34)
[2022-10-12] MEDS: OXYCODONE IR 10 MG TABLET PO ×4 (02:20→21:07)
[2022-10-12] MEDS: LACTATED RINGERS 1,000 ML 100 ML IV (02:21)
[2022-10-12] MEDS: ACETAMINOPHEN 325 MG TABLET 650 MG PO ×2 (05:02→15:04)
[2022-10-12 06:38] LABS: Add Manual Diff / Slide Review NO; Basophils Absolute Auto 0 /uL (0-100); Basophils Percent Auto 0.1 % (0-2); Eosinophils Absolute Auto 100 /uL (0-450); Eosinophils Percent Auto 1.3 % (2-4); Hematocrit 25.3 % (36-46); Hemoglobin 8.7 g/dL (12.0-16.0); Lymphocytes Absolute Auto 1600 /uL (1100-4500); Lymphocytes Percent Auto 17.9 % (25-40); Mean Corpuscular HGB Conc 34.3 % (30-36); Mean Corpuscular Hemoglobin 31.8 PG (26-34); Mean Corpuscular Volume 92.6 fL (80-100); Monocytes Absolute Auto 800 /uL (0-900); Monocytes Percent Auto 9.4 % (3-14); Neutrophils Absolute Auto 6400 /uL (1500-7000); Neutrophils Percent Auto 71.3 % (50-75); Platelet Count 167 X10^3/uL (150-400); Red Blood Cell Count 2.73 X10^6/uL (4.0-5.2)
[2022-10-12] MEDS: ACYCLOVIR 400 MG TABLET PO (08:35)
[2022-10-12] MEDS: DOCUSATE 100 MG CAPSULE PO ×2 (08:35→21:07)
--- NOTE | 2022-10-12 12:23 | P.PNOB_ITS ---
Subjective - OB Subjective Patient comments: no complaints, incisional pain and tolerating diet [place] baby status: doing well feeding status: exclusively breast feeding Narrative: Patient is doing well overnight but is extremely fatigued which is understandable. She is tolerating a regular diet but has not been up out of bed much. Her catheter has been removed and she is voiding without difficulty. She is not yet passed gas. Her pain is reasonably well controlled with combination of oxycodone, Toradol, and Tylenol. Date Patient Seen: 10/12/22 Time Patient Seen: 07:30 Exam Vital Signs (past 8 hours): Oxygen Delivery Method Room Air Const General: cooperative and comfortable Nutritional Appearance: average body habitus Orientation: alert and oriented x3 HENMT Head: normal to inspection, atraumatic and abrasion Ears: hearing grossly normal bilaterally Face and sinus: face symmetric Eyes General: appearance normal, both eyes and all related structures Conjunctivae: conjunctivae normal Sclera: sclerae normal EOM: EOM intact bilaterally Neck Neck: normal visual inspection Resp Effort & Inspection: normal respiratory effort and able to speak in complete sentences Auscultation: clear to auscultation bilaterally Cardio Rate: regular rate Rhythm: regular rhythm Heart Sounds: S1 normal, S2 normal and no murmurs GI Inspection: normal to inspection and incision (Surgical dressing clean and dry) Palpation: soft, no hepatosplenomegaly and tender (Mild, diffuse postsurgical tenderness) External Female Exam: other (No significant bleeding noted) Extrem General: no calf tenderness Psych Appearance: grossly normal Mental Status: mental status grossly normal Speech and Movement: speech and movement normal Mood: congruent mood Affect: normal affect Attitude: cooperative Thought Process: normal Thought Content: normal Judgment: judgment good Objective Labs 10/12/22 06:28 Labs: Laboratory Results - last 24 hr 10/12/22 06:28 WBC 9.0 RBC 2.73 L Hgb 8.7 L Hct 25.3 L MCV 92.6 MCH 31.8 MCHC 34.3 RDW 14.0 Plt Count 167 Neut % (Auto) 71.3 Lymph % (Auto) 17.9 L [place] % (Auto) 9.4 Eos % (Auto) 1.3 L Baso % (Auto) 0.1 Neut # (Auto) 6400 Lymph # (Auto) 1600 [place] # (Auto) 800 Eos # (Auto) 100 Baso # (Auto) 0 Assessment & Plan Plan day: 1 plan OB: routine postop care Time Spent With Patient Time: Total time spent is greater than 50% in coordination of care (as documented) at patient's floor/unit and/or counseling patient: Time with patient: 15-24 minutes
[2022-10-12] MEDS: IRON SUCROSE 300 MG in SODIUM CHLORIDE 0.9% 250 ML 176.667 MG IV (14:00)
[2022-10-12] MEDS: IBUPROFEN 600 MG TABLET PO (15:05)
--- NOTE | 2022-10-12 16:54 | PM.OBPN.1 ---
Subjective - OB Subjective Interval history: Over the course of the day, the patient's pain especially over on the left side of her incision, is increasing rather than decreasing. She remains afebrile but he has been taking Tylenol and ibuprofen through the day continuously which could be suppressing her temp. Exam Vital Signs (past 8 hours): Oxygen Delivery Method Room Air Const General: cooperative, comfortable, ill appearing and lethargic Nutritional Appearance: average body habitus Orientation: alert and oriented x3 HENMT Head: normal to inspection Eyes General: appearance normal, both eyes and all related structures Conjunctivae: conjunctivae normal Sclera: sclerae normal EOM: EOM intact bilaterally Resp Effort & Inspection: normal respiratory effort and able to speak in complete sentences GI Inspection: normal to inspection and incision (Surgical dressing clean and dry) Palpation: soft, no hepatosplenomegaly and tender (Mild, diffuse postsurgical tenderness, marked tenderness over L [place]) Auscultation: hypoactive bowel sounds External Female Exam: other (No significant bleeding noted) Extrem General: no calf tenderness Psych Appearance: grossly normal Mental Status: mental status grossly normal Speech and Movement: speech and movement normal Mood: congruent mood Affect: normal affect Attitude: cooperative Thought Process: normal Thought Content: normal Judgment: judgment good Objective Labs 10/12/22 06:28 Labs: Laboratory Results - last 24 hr 10/12/22 06:28 WBC 9.0 RBC 2.73 L Hgb 8.7 L Hct 25.3 L MCV 92.6 MCH 31.8 MCHC 34.3 RDW 14.0 Plt Count 167 Neut % (Auto) 71.3 Lymph % (Auto) 17.9 L [place] % (Auto) 9.4 Eos % (Auto) 1.3 L Baso % (Auto) 0.1 Neut # (Auto) 6400 Lymph # (Auto) 1600 [place] # (Auto) 800 Eos # (Auto) 100 Baso # (Auto) 0 Assessment & Plan Plan day: 1 Comments: Due to the patient's increasing pain, I am concerned about possible hematoma/abscess formation as well as possible ureteral injury following her . The other possibility is at she is developing post endomyometritis which is a distinct possibility given the fact that she was ruptured for so long and that we were unable to administer azithromycin due to her allergy to clarithromycin. Will go ahead and initiate gentamicin and clindamycin IV and obtain stat abdominal pelvic CT. Decisions regarding further evaluation/treatment will be based on these results. Time Spent With Patient Time: Total time spent is greater than 50% in coordination of care (as documented) at patient's floor/unit and/or counseling patient: Time with patient: 15-24 minutes
--- NOTE | 2022-10-12 17:08 | DI.CT.S_ITS ---
PROCEDURE: CT ABDOMEN PELVIS W CON INDICATIONS: Post-op pain s/p section, 1700 10/11/2022 TECHNIQUE: After the administration of intravenous contrast, axial sections acquired from the lung bases to the pubic symphysis. Coronal and sagittal reformats were performed. For radiation dose reduction, the following was used: automated exposure control, adjustment of mA and/or kV according to patient size. COMPARISON: None. FINDINGS: Image quality: Excellent. Lung bases: Small bilateral pleural effusions with adjacent atelectasis. Heart: No significant findings. ABDOMEN: Liver: Unremarkable. Gallbladder: Unremarkable. Biliary ducts: Unremarkable. Pancreas: Unremarkable. Spleen: Unremarkable. Adrenal Glands: Unremarkable. Kidneys and Ureters: Mild left hydroureter and hydronephrosis with a mildly delayed left nephrogram. Stomach and Bowel: Stomach, small bowel loops, and colon are unremarkable. Peritoneum: Small to moderate volume free fluid throughout the abdomen with foci of gas, may be postsurgical in etiology from recent . Ventral Wall: Subcutaneous gas and stranding within the anterior abdominal wall from incision. Abdominal Nodes: No retroperitoneal or mesenteric adenopathy by size criteria. Vessels: Aorta and inferior vena cava are normal in size. PELVIS: Pelvic Organs: The uterus is enlarged with fluid and gas within the endometrium. Bladder: Unremarkable. Pelvic Nodes: No enlarged lymph nodes. Miscellaneous: No hernias are seen. Bones: Unremarkable. IMPRESSION: 1. Postsurgical changes from . The uterus is enlarged. The endometrium is distended with fluid and gas. Retained products of conception or endometrial infection cannot be excluded, recommend clinical correlation and pelvic ultrasound. 2. Small to moderate volume free fluid and foci of gas within the abdomen and pelvis, likely postsurgical in etiology. 3. Mild left hydroureteronephrosis with mildly delayed left nephrogram. The distal ureter is not well visualized. This may be residual from or there may be a mild mass effect on the distal ureter from the uterus. 4. No evidence of bowel obstruction or ileus. Dictated by: Robert Bosch M.D. on 10/12/2022 at 19:02 Approved by: Robert Bosch M.D. on 10/12/2022 at 19:10
[2022-10-12 17:18] LABS: Add Manual Diff / Slide Review NO; Basophils Absolute Auto 0 /uL (0-100); Basophils Percent Auto 0.1 % (0-2); Eosinophils Absolute Auto 100 /uL (0-450); Eosinophils Percent Auto 0.8 % (2-4); Hematocrit 24.2 % (36-46); Hemoglobin 8.3 g/dL (12.0-16.0); Lymphocytes Absolute Auto 1000 /uL (1100-4500); Lymphocytes Percent Auto 11.2 % (25-40); Mean Corpuscular HGB Conc 34.2 % (30-36); Mean Corpuscular Hemoglobin 31.8 PG (26-34); Monocytes Absolute Auto 500 /uL (0-900); Monocytes Percent Auto 5.6 % (3-14); Neutrophils Absolute Auto 7500 /uL (1500-7000); Neutrophils Percent Auto 82.3 % (50-75); Platelet Count 182 X10^3/uL (150-400); Red Cell Distribution Width 14.3 % (11.6-14.8); White Blood Cell Count 9.1 X10^3/uL (4.5-11.0)
[2022-10-12] MEDS: LACTATED RINGERS 500 ML 1000 ML IV (17:36)
[2022-10-12 17:56] LABS: Alanine Aminotransferase 15 IU/L (<35); Albumin 2.2 g/dL (3.5-5.0); Albumin Globulin Ratio 0.8 (1.0-2.8); Alkaline Phosphatase 110 U/L (38-126); Aspartate Aminotransferase 27 IU/L (14-36); BUN Creatinine Ratio 14.1 (6-22); Bilirubin Total 0.5 mg/dL (0.2-1.3); Blood Urea Nitrogen 9 mg/dL (7-17); Calcium 7.8 mg/dL (8.4-10.2); Carbon Dioxide 25 mmol/L (22-32); Chloride 104 mmol/L (98-107); Estimated Glomerular Filt Rate > 60 mL/min (>60); Globulin 2.6 g/dL (1.7-4.1); Glucose 118 mg/dL (70-100); HEMOLYSIS < 15 (0-50); Potassium 3.7 mmol/L (3.4-5.1); Sodium 131 mmol/L (137-145); Total Protein 4.8 g/dL (6.3-8.2)
[2022-10-12] MEDS: CLINDAMYCIN 600 MG/50 ML PIGGYBACK 50 MG IV (18:50)
[2022-10-12] MEDS: GENTAMICIN 280 MG in SODIUM CHLORIDE 0.9% 100 ML 107 MG IV (19:54)
[2022-10-13] MEDS: OXYCODONE IR 10 MG TABLET PO ×6 (01:17→21:54)
[2022-10-13] MEDS: LACTATED RINGERS 1,000 ML 100 ML IV ×2 (02:27→16:03)
[2022-10-13] MEDS: CLINDAMYCIN 600 MG/50 ML PIGGYBACK 50 MG IV ×3 (02:28→17:59)
[2022-10-13 08:33] LABS: Gentamicin Random 0.8 ug/mL (1.0-8.0)
--- NOTE | 2022-10-13 09:00 | PM.OBPN.1 ---
Subjective - OB Subjective Patient comments: pain well controlled, tolerating diet and flatus present baby status: doing well feeding status: exclusively breast feeding Narrative: Abdominal pain significantly less overnight following initiation of IV gentamicin/clindamycin antibiotic therapy. CT of the abdomen and pelvis only showed postsurgical changes with mild hydronephrosis on the left side which is not unexpected. She is tolerating regular diet and her bowel and bladder functions are both returning as expected. She remains afebrile and normotensive. Date Patient Seen: 10/13/22 Time Patient Seen: 07:35 Exam Vital Signs (past 8 hours): Oxygen Delivery Method Room Air Const General: cooperative, comfortable and No ill appearing Nutritional Appearance: average body habitus Orientation: alert and oriented x3 HENMT Head: normal to inspection, atraumatic and abrasion Ears: hearing grossly normal bilaterally Face and sinus: face symmetric Eyes General: appearance normal, both eyes and all related structures Conjunctivae: conjunctivae normal Sclera: sclerae normal EOM: EOM intact bilaterally Neck Neck: normal visual inspection Resp Effort & Inspection: normal respiratory effort and able to speak in complete sentences Auscultation: clear to auscultation bilaterally Cardio Rate: regular rate Rhythm: regular rhythm Heart Sounds: S1 normal, S2 normal and no murmurs GI Inspection: normal to inspection and incision (Compression dressing removed and Aquacel dressing applied) Palpation: soft, no hepatosplenomegaly, mass (Firm, minimally tender uterus, U -4) and tender (Mild, diffuse postsurgical tenderness) Auscultation: normal bowel sounds External Female Exam: other (No significant bleeding noted) Extrem General: no calf tenderness Psych Appearance: grossly normal Mental Status: mental status grossly normal Speech and Movement: speech and movement normal Mood: congruent mood Affect: normal affect Attitude: cooperative Thought Process: normal Thought Content: normal Judgment: judgment good Objective Imaging ABD/PELVIC CT w/ CONTRAST: Radiologist's impression: PROCEDURE:? CT ABDOMEN PELVIS W CON ? INDICATIONS:? Post-op pain s/p section, 1700 10/11/2022 ? TECHNIQUE:? After the administration of intravenous contrast, axial sections acquired from the lung bases to the pubic symphysis.? Coronal and sagittal reformats were performed.? For radiation dose reduction, the following was used:? automated exposure control, adjustment of mA and/or kV according to patient size.? ? COMPARISON:? None. ? FINDINGS:? Image quality:? Excellent.? ? Lung bases:? Small bilateral pleural effusions with adjacent atelectasis. Heart:? No significant findings. ? ABDOMEN: Liver:? Unremarkable.? ? Gallbladder:? Unremarkable.? ? Biliary ducts:? Unremarkable.? ? Pancreas:? Unremarkable.? ? Spleen:? Unremarkable.? ? Adrenal Glands:? Unremarkable.? ? Kidneys and Ureters:? Mild left hydroureter and hydronephrosis with a mildly delayed left nephrogram. ? Stomach and Bowel:? Stomach, small bowel loops, and colon are unremarkable.? Peritoneum:? Small to moderate volume free fluid throughout the abdomen with foci of gas, may be postsurgical in etiology from recent . ? Ventral Wall:? Subcutaneous gas and stranding within the anterior abdominal wall from incision. Abdominal Nodes:? No retroperitoneal or mesenteric adenopathy by size criteria.? Vessels:? Aorta and inferior vena cava are normal in size.? ? PELVIS: Pelvic Organs:? The uterus is enlarged with fluid and gas within the endometrium. Bladder:? Unremarkable.? ? Pelvic Nodes: No enlarged lymph nodes.? Miscellaneous: No hernias are seen. ? ? ? Bones:? Unremarkable.? ? ? IMPRESSION: ? 1. Postsurgical changes from .? The uterus is enlarged.? The endometrium is distended with fluid and gas.? Retained products of conception or endometrial infection cannot be excluded, recommend clinical correlation and pelvic ultrasound. 2. Small to moderate volume free fluid and foci of gas within the abdomen and pelvis, likely postsurgical in etiology. 3. Mild left hydroureteronephrosis with mildly delayed left nephrogram.? The distal ureter is not well visualized.? This may be residual from or there may be a mild mass effect on the distal ureter from the uterus. 4. No evidence of bowel obstruction or ileus. Labs 10/12/22 17:00 10/12/22 17:00 Labs: Laboratory Results - last 24 hr 10/12/22 10/12/22 10/13/22 17:00 17:00 08:03 WBC 9.1 RBC 2.60 L Hgb 8.3 L Hct 24.2 L MCV 93.0 MCH 31.8 MCHC 34.2 RDW 14.3 Plt Count 182 Neut % (Auto) 82.3 H Lymph % (Auto) 11.2 L [place] % (Auto) 5.6 Eos % (Auto) 0.8 L Baso % (Auto) 0.1 Neut # (Auto) 7500 H Lymph # (Auto) 1000 L [place] # (Auto) 500 Eos # (Auto) 100 Baso # (Auto) 0 Sodium 131 L Potassium 3.7 Chloride 104 Carbon Dioxide 25 BUN 9 Creatinine 0.64 Estimated GFR > 60 BUN/Creatinine Ratio 14.1 Glucose 118 H Calcium 7.8 L Total Bilirubin 0.5 AST 27 ALT 15 Alkaline Phosphatase 110 Total Protein 4.8 L Albumin 2.2 L Globulin 2.6 Albumin/Globulin Ratio 0.8 L Random Gentamicin 0.8 L Assessment & Plan Plan day: 2 plan OB: other (See below) Comments: Continue IV gentamicin and clindamycin until 1800 dose this evening and switch to p.o. Augmentin and clindamycin. Probable discharge in a.m.. Abdominal binder 2nd dose of IV iron sucrose 300 mg prior to discontinuing IV Time Spent With Patient Time: Total time spent is greater than 50% in coordination of care (as documented) at patient's floor/unit and/or counseling patient: Time with patient: 15-24 minutes
[2022-10-13] MEDS: DOCUSATE 100 MG CAPSULE PO ×2 (10:16→21:55)
[2022-10-13] MEDS: MEASLES,MUMPS,RUBELLA VACC/PF 0.5 ML VIAL SUBCUT (11:36)
[2022-10-13] MEDS: IRON SUCROSE 300 MG in SODIUM CHLORIDE 0.9% 250 ML 176.667 MG IV (16:02)
[2022-10-13] MEDS: CLINDAMYCIN 150 MG CAPSULE 300 MG PO (21:54)
[2022-10-13] MEDS: AMOXICILLIN/CLAV 875/125 MG 1 TAB PO (21:54)
[2022-10-14] MEDS: OXYCODONE IR 10 MG TABLET PO ×2 (02:10→09:45)
[2022-10-14] MEDS: IBUPROFEN 600 MG TABLET PO (06:03)
[2022-10-14] MEDS: CLINDAMYCIN 150 MG CAPSULE 300 MG PO (06:03)
[2022-10-14] MEDS: ACETAMINOPHEN 325 MG TABLET 650 MG PO (06:03)
[2022-10-14] MEDS: AMOXICILLIN/CLAV 875/125 MG 1 TAB PO (09:45)
[2022-10-14] MEDS: DOCUSATE 100 MG CAPSULE PO (09:46)
--- NOTE | 2022-10-14 11:48 | PM.DS.1 ---
History of Present Illness History of Present Illness Date Patient Seen: 10/14/22 Time Patient Seen: 10:40 Chief complaint: OB admitted at 36_6 wks EGA w/ SROM Discharge Providers Provider Date of admission: 10/09/22 20:10 Discharge Date: 10/14/22 Primary care physician: Senthil MITCHELL Provider Consults: 10/11/22 19:25 Consult to Cell Plasterer Routine Comment: Discharge provider: Puneet Benitez MD Summary Hospital Course Discharge Diagnosis: S/P Primary section for failure to progress due to cephalopelvic disproportion and persistent occiput posterior position Prolonged rupture membranes endomyometritis Anemia due to operative blood loss Hospital Course: Liz was admitted on the evening of 10/09/2022 with spontaneous rupture of membranes earlier that evening. Cervidil was placed overnight and Pitocin was begun on the morning of 10/10/2022. An epidural was placed on the afternoon of 10/10/2022 and Pitocin augmentation continued through her 2nd hospital night. By the morning of 10/11/2022 she was 4 cm dilated, 90% effaced, with the vertex at -1 station. For rock ruptured late morning and an intrauterine pressure cannula was placed with little or no change in the cervix. Pitocin was continued throughout the day on 10/11/2022 but despite adequate contractions confirmed by [facility], the patient failed to progress. Bedside ultrasound showed the to be in right occiput posterior position and the patient received IV antibiotics every 8 hours for prolonged rupture membranes. Due to secondary arrest, the patient underwent a primary section on the evening of 10/11/2022 productive of a viable male infant with Apgars of 7/9, weight 3194 g ( 7 lb 0.7 oz). Details of the procedure well summarized on my operative note of that date. Estimated blood loss at the time of surgery was about 1200 cc and her postop hematocrit drop by 10 points but was stable. Patient received 2 IV infusions of 300 mg of iron sucrose prior to discharge. Also, on the 1st postoperative day the patient's lower abdominal pain was progressively worsening and although she did not have a fever, it was felt after a negative CT showed no abscess or hematoma formation, that she most likely was developing post delivery endomyometritis. Accordingly intravenous clindamycin and gentamicin was initiated on the evening of 10/12/2022 with prompt defervescence of her pain and she has remained afebrile and normotensive throughout her hospitalization. She is markedly improved with good return of bowel and bladder function, she is ambulating independently, tolerating regular diet, and her pain is well controlled with oral pain medications. She will be discharged at this time to home in an afebrile normotensive condition after counseling regarding precautionary symptoms, limitations activity, medications, and plans for follow-up which will be in 1 week. Medications at discharge will include resumption of vitamins, oxycodone 10 mg p.o. q.6 hours as needed pain, dispensed 20 with no refills, ibuprofen 600 mg p.o. q.6 hours as needed pain, dispensed 60 with 2 refills, Augmentin 1 p.o. b.i.d. x7 days, clindamycin 300 mg p.o. t.i.d. x7 days. Status at Discharge Cognitive/behavioral status at discharge: oriented Functional status at discharge: independent ambulation Overall status at discharge: patient is progressing back to baseline Time Spent with Patient Time spent: Less than 30 minutes Exam Vital Signs (past 8 hours): Oxygen Delivery Method Room Air Const General: cooperative and comfortable Nutritional Appearance: average body habitus Orientation: alert and oriented x3 HENMT Head: normal to inspection, atraumatic and abrasion Ears: hearing grossly normal bilaterally Face and sinus: face symmetric Eyes General: appearance normal, both eyes and all related structures Conjunctivae: conjunctivae normal Sclera: sclerae normal EOM: EOM intact bilaterally Neck Neck: normal visual inspection Resp Effort & Inspection: normal respiratory effort and able to speak in complete sentences Auscultation: clear to auscultation bilaterally Cardio Rate: regular rate Rhythm: regular rhythm Heart Sounds: S1 normal, S2 normal and no murmurs GI Inspection: normal to inspection and incision (Aquacel dressing clean and dry) Palpation: soft, no hepatosplenomegaly and tender (Mild, diffuse postsurgical tenderness) External Female Exam: other (No significant bleeding noted) Extrem General: no calf tenderness Psych Appearance: grossly normal Mental Status: mental status grossly normal Speech and Movement: speech and movement normal Mood: congruent mood Affect: normal affect Attitude: cooperative Thought Process: normal Thought Content: normal Judgment: judgment good Objective Labs 10/12/22 17:00 10/12/22 17:00 [facility] Medical History (Updated 10/07/22 @ 15:12 by Puneet Benitez MD) Migraine without aura Surgical History (Updated 04/23/22 @ 18:07 by Barbara Norman) Anesthesia Bertrand teeth extracted Family History Mother Diabetes mellitus Social History marital status: unmarried,single number of children: 0 household members: friend(s) lives independently: Yes caregiver/support person: No housing: condominium pets and animals: Yes (cat, agrees to wear gloves/mask when dealing w/ litter box) education level: college (some college) occupational status: employed (entry level electrician, 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 ) current occupational exposures/hazards: No special torrie needs: No travel history: recent (domestic only ) and over 6 months ago seatbelt use: always water heater temp set < 120 deg: Yes working smoke detector in home: Yes fire extinguisher in home: Yes carbon monox detector in home: Yes firearms in home: Yes firearms unloaded and locked: Yes do you feel safe at home: Yes Smoking Status: Former smoker second hand exposure: Yes (roommate vapes, not around pt) alcohol intake: never substance use type: does not use during the past year weight has: remained stable well-balanced diet: rarely or never daily servings fruits/ve-1 caffeine: Yes (~8) Type(s) of exercise: aerobic and weight lifting frequency: 3-4 times per week Discharge Assessment & Plan Assessment and Plan Assessment: Status post primary section for failure to progress due to cephalopelvic disproportion, and persistent occiput posterior position Prolonged rupture of membranes endomyometritis, resolved anemia due to operative blood losses Plan of Treatment: Routine postoperative care with 7 days of IV antibiotic therapy with Augmentin and clindamycin. Follow-up will be in 1 week for incision check and dressing removal. Discharge Plan Discharge Plan Patient Disposition: Home Provider Discharge Comment: Please review the written instructions you received when you were discharged from the hospital. Your follow-up appointment is scheduled for 1 week after your surgery and I look forward to seeing you then. If however in the meanwhile, you have any issues, concerns, or questions, please contact me either through the office phone at [phone], or via the patient portal. Discharge orders & Medications Prescriptions: New oxycodone 10 mg Tablet 10 mg PO Q6H PRN (Reason: Pain, Severe (7-10)) Qty: 20 0RF Continued prenat.vits,diego,fgn-hyjx-aufzx Tablet 1 tab PO DAILY Discontinued valacyclovir [Valtrex] 500 mg tablet 500 mg PO BID Qty: 10 0RF methylprednisolone 4 mg tablets,dose pack 4 mg PO DAILY Qty: 21 0RF Rx Instructions: directed No Action (DME) blood-glucose meter [Blood Glucose Monitoring] Kit See Rx Instructions miscellaneous .MEDSUPPLY Qty: 1 0RF Rx Instructions: please chk AM fasting blood sugar, and 1 hour after brkfst, lunch and dinner (DME) lancets [Comfort Lancets] Misc See Rx Instructions miscellaneous .MEDSUPPLY Qty: 100 0RF Rx Instructions: please chk AM fasting blood sugar, and 1 hour after brkfst, lunch and dinner amoxicillin-pot clavulanate 875-125 mg tablet 1 tab PO BID 7 Days Qty: 28 0RF clindamycin HCl 150 mg capsule 300 mg PO Q8HR 7 Days Qty: 42 0RF ibuprofen 600 mg tablet 600 mg PO Q6H Qty: 60 2RF (DME) Blood Glucose Test Strip See Rx Instructions miscellaneous .MEDSUPPLY Qty: 100 3RF Rx Instructions: please chk AM fasting blood sugar, and 1 hour after brkfst, lunch and dinner Follow up/Referrals: Provider,Senthil MITCHELL [Primary Care Provider] - Puneet Benitez MD [Family Provider] - (Your 1 week dressing removal/incision check appointment with Dr. Benitez is scheduled for October 18@3:45 pm. Your 6 week follow up appointment with Dr. Benitez is scheduled for November 29@10:00am. *Check-in for all appointments 15 minutes early*) Discharge Health Status Multidrug resistant organism: No MDRO Diet/Activity/Treatments Diet: Diet as Tolerated Activity: As tolerated Other treatments: [id number] Tylenol may be used for additional pain relief. [id number] stool softeners and/ or MiraLax may be used as needed for constipation. Skin/Wound/Dressing Care Dressing: Dressing will be removed at the time of your one-week postop visit. Visit Report/Discharge Packet Instructions: DI for , DI for and Nipple Soreness, DI for Prescription Opioid Use Stand Alone Forms: Discharge: Care Discharge Data Primary Care Provider: ProviderSenthil
== END 2022-10-14 12:15 | disposition home or self-care (01) | DRG 787 ==
PROVIDERS: Admitting Provider Specialist; Family Provider Obstetrics & Gynecology; Referring Provider Specialist; Visit Provider Specialist
PROC: 10D00Z1 Extraction of Products of Conception, Low, Open Approach (ICD-10-PCS; CPT 59514; principal; 2022-10-11 16:45)
DX: O64.1XX0 Obstructed labor due to breech presentation, not applicable or unspecified (principal); O86.12 Endometritis following delivery; O24.420 Gestational diabetes mellitus in childbirth, diet controlled; O42.12 Full-term premature rupture of membranes, onset of labor more than 24 hours following rupture; Z3A.36 36 weeks gestation of pregnancy; O90.81 Anemia of the puerperium; Z37.0 Single live birth; D50.0 Iron deficiency anemia secondary to blood loss (chronic); O99.892 Other specified diseases and conditions complicating childbirth; G51.0 Bell's palsy
CPT/HCPCS: 36415; 59025; 59050; 59200; 59510; 59514; 74177; 76815; 80053; 80170; 84112; 85025; 86850; 86900; 86901; G0379; J0690; J1756; J1885; J2274; J2590; J3010; Q9967